=== PATIENT | female | born 1980 | race Caucasian/White ===

== ENCOUNTER → 2016-10-04 | Outpatient (CLI) | payer BC ==
[~2016-10-04] MED LIST: PRENTAB26 PO
== END | disposition home or self-care (01) ==
LOC: C.LABSPEC 16:12
PROVIDERS: ATTEND Obstetrics & Gynecology
DX: O24.414 Gestational diabetes mellitus in pregnancy, insulin controlled (principal); Z3A.00 Weeks of gestation of pregnancy not specified

== ENCOUNTER 2016-10-24 07:36 | Inpatient (IN) | payer BC ==
[~2016-10-24] VITALS: Ht 167.6 cm; Wt 96.2 kg
[2016-10-24] MEDS ORDERED: SODIUM CHLORIDE 0.9% 1000ML 1,000 ML IV SCH (08:37)
[2016-10-24] MEDS ORDERED: LACTATED RINGER'S 1000ML 1,000 ML IV PRN (08:37)
[2016-10-24] MEDS ORDERED: LACTATED RINGER'S 1000ML 500 ML IV PRN ×2 (08:40→18:53)
[2016-10-24] MEDS ORDERED: OXYTOCIN 30 UNITS/500ML NSS IV PRN ×2 (08:45→20:45)
[2016-10-24] MEDS ORDERED: DEXTROSE 50% 50 ML SYR IV PRN (08:45)
[2016-10-24 09:06] LABS: HEMATOCRIT 35.9 % (37-47); MEAN CELL VOLUME 91.6 fL (80-100); MEAN CORPUSCULAR HEMOGLOBIN 31.9 pg (25-34); MEAN CORPUSCULAR HGB CONC 34.8 g/dl (32-36); MEAN PLATELET VOLUME 11.8 fL (7.4-10.4); PLATELET COUNT 193 K/uL (130-400); RED BLOOD COUNT 3.92 M/uL (4.2-5.4); WHITE BLOOD COUNT 11.08 K/uL (4.8-10.8)
--- NOTE | 2016-10-24 09:19 | Medical Student: [facility] ---
Med Student History & Physical Date of Service Oct 24, 2016. Chief Complaint Here for induction History of Present Illness Source: patient, partner, clinic records, hospital records This is a 36 year old who presents at 39 weeks 5 days for induction of labor. This is a via in vitro fertilization which was complicated by gestational diabetes and group B strep positive status. She has no acute complaints at the moment. She reports frequent movement, no bleeding other than light bleeding following a cervical check at the office, no fluid leaks, and only occasional cramping but no true contractions. Labs: Blood type: O+, negative antibody screen HCT/HGB: 33.6% and 11.7 g/dl PAP: negative Varicella not tested Rubella: Immune VDRL/RPR: Nonreactive HBsAg: Negative HIV: Negative Chlamydia: Negative Gonorrhea: Negative CF screen: Negative Diabetes: Positive 2nd trimester screen: Negative GBS: Positive OB History G1: Chemical with spontaneous . G2: Current . INCIDENT RESPONSE COORDINATOR History Patient reports age of menarche to be 12. Her last menstrual period she thinks was in November. Prior to her periods had been regular at 30 day intervals, lasting about 5-7 seven days with painful cramping and heavy bleeding for the first few days. She denies any history of STDs. She had a previous abnormal pap smear in 2011 which showed ASCUS, but has had several normal paps since then, including her pap at her initial OB visit. Past Medical History No significant past medical history other than infertility. Past Surgical History [place] teeth removal 10 years ago. Family History No relevant family history Social History Smoking Status: Never Smoker Smokeless Tobacco Use: No Alcohol Use: socially (none during ) Drug Use: none Marital Status: Housing status: lives with significant other Occupational Status: employed Allergies Coded Allergies: No Known Allergies (Unverified , 10/24/16) Review of Systems Eyes: No worsening of vision Abdomen: No pain Musculoskeletal: + swelling (mild lower extremity swelling) Physical Exam General Appearance: WD/WN, no apparent distress Respiratory/Chest: lungs clear, normal breath sounds Cardiovascular: regular rate, rhythm, no murmur Abdomen / GI: non tender, soft, + pertinent finding (gravid) Genitourinary - Female: + pertinent finding (cervix 3 cm dilated, 50% effaced, -2 station) Extremities: no calf tenderness, no pedal edema Neurologic/Psych: alert, oriented x 3 Monitoring External Monitor: baseline 150 with moderate variability and accelerations present, without decelerations. Tocodynamometer: No significant contractions Laboratory Results Test 10/24/16 08:37 Assessment and Plan This is a 36 year old who presents at 39 weeks 5 days for induction of labor. She is not yet in labor as evidenced by her lack of contractions. positioning is vertex. heart monitoring shows a category I tracing. She has IV access and will be receiving pitocin beginning at 1 mu and increasing as needed. She will also be given penicillin for GBS prophylaxis. Team will continue to monitor and maternal vital signs and perform regular cervical checks for progression of labor.
[2016-10-24] MEDS ORDERED: PENICILLIN G POTASSIUM IV 6 MU in DEXTROSE 5% 250ML 250 ML IV ONE (09:30)
[2016-10-24] MEDS: LACTATED RINGER'S 1000ML 1,000 ML IV SCH (09:38)
[2016-10-24] MEDS: DEXTROSE 5% 1000ML 1,000 ML IV SCH ×4 (09:39→13:01)
[2016-10-24] MEDS: INSULIN REGULAR 250 UNITS in SODIUM CHLORIDE 0.9% 250ML 250 ML IV SCH ×9 (09:57→19:07)
[2016-10-24] MEDS ORDERED: GLUCOSE 40% GEL 15 GM TUBE PO PRN (10:00)
[2016-10-24] MEDS ORDERED: GLUCOSE 10 TABS/TUBE PO PRN (10:00)
[2016-10-24] MEDS ORDERED: GLUCAGON FOR INJ 1 MG VIAL SQ PRN (10:00)
[2016-10-24 12:30] VITALS: BMI 34.2
[2016-10-24] MEDS ORDERED: PRENTAB26 PO (12:31)
[2016-10-24 12:32] VITALS: Ht 167.6 cm; Wt 96.2 kg
[2016-10-24] MEDS: PENICILLIN G POTASSIUM IV 3 MU in DEXTROSE 5% 100ML 100 ML IV PRN ×2 (14:02→18:11)
[2016-10-24] MEDS ORDERED: BUPIVACAINE 0.25% 30 ML VIAL ONE (17:36)
[2016-10-24] MEDS ORDERED: EpHEDrine SULFATE INJ 50 MG/ML AMP ONE (17:36)
[2016-10-24] MEDS ORDERED: FENTANYL CITRATE INJ 50 MCG/1 ML 2 ML VIAL ONE (17:37)
[2016-10-24] MEDS ORDERED: FENTANYL 2MCG/ML ROPIV 1.25MG/ML 100ML BAG EPI ONE (17:38)
[2016-10-24] MEDS ORDERED: NALOXONE HCL INJ 1 MG in SODIUM CHLORIDE 0.9% 1000ML 1,000 ML IV PRN (18:53)
[2016-10-24] MEDS ORDERED: DiphenhydrAMINE HCL 50 MG/ML VIAL IV PRN (19:00)
[2016-10-24] MEDS ORDERED: FENTANYL 2MCG/ML ROPIV 1.25MG/ML 100ML BAG EPI PRN (19:00)
[2016-10-24] MEDS ORDERED: NALOXONE HCL INJ 0.4 MG/1 ML VIAL/CARP IV PRN (19:00)
[2016-10-24] MEDS ORDERED: EpHEDrine SULFATE INJ 50 MG/ML AMP IV PRN (19:00)
[2016-10-24] MEDS ORDERED: PROMETHAZINE HCL INJ 25 MG in SODIUM CHLORIDE 0.9% 50ML 50 ML IV PRN (19:00)
[2016-10-24] MEDS ORDERED: ONDANSETRON INJ 2 MG/ML 2 ML VIAL IV PRN (19:00)
[2016-10-24] MEDS ORDERED: NALBUPHINE HCL INJ 10 MG/ML AMP IV PRN (19:00)
[2016-10-24] MEDS ORDERED: METOCLOPRAMIDE HCL INJ 20 MG in SODIUM CHLORIDE 0.9% 50ML 50 ML IV PRN (19:00)
[2016-10-24] MEDS ORDERED: LANOLIN OINT EXT PRN ×2 (20:45)
[2016-10-24] MEDS ORDERED: ACETAMINOPHEN/CODEINE 300/30MG TAB PO PRN (20:45)
[2016-10-24] MEDS ORDERED: ACETAMINOPHEN 325 MG TAB PO PRN (20:45)
[2016-10-24] MEDS ORDERED: BENZOCAINE 20% AER SPR 82.5 GM CAN EXT PRN (20:45)
[2016-10-24] MEDS ORDERED: HYDROCORTISONE ACETATE 25 MG SUPP PR PRN (20:45)
[2016-10-24] MEDS ORDERED: SUPERCREAM 0.870 % 15GM JAR EXT PRN (20:45)
[2016-10-24] MEDS ORDERED: OXYCODONE/ACETAMINOPHEN 5-325 TAB PO PRN (20:45)
[2016-10-24] MEDS: IBUPROFEN 600 MG TAB PO PRN (22:51)
[2016-10-24] MEDS: ACETAMINOPHEN/CODEINE 300/30MG TAB PO PRN (22:51)
[2016-10-25] VITALS (7 sets, daily range): BP systolic 97–117; BP diastolic 49–69; PULSE 67–91; TEMP 36.3–36.8; O2SAT 97–98
[2016-10-25] MEDS: LACTATED RINGER'S 1000ML 1,000 ML IV SCH (00:20)
[2016-10-25] MEDS: IBUPROFEN 600 MG TAB PO PRN ×5 (02:51→22:06)
[2016-10-25 06:33] LABS: HEMATOCRIT 28.1 % (37-47)
--- NOTE | 2016-10-25 07:04 | DELIVERY SUMMARY ---
DATE OF OPERATION: 10/24/2016 OPERATIVE VAGINAL DELIVERY NOTE Negrita was induced as an insulin-dependent diabetic at 39+ weeks gestation. Group B strep positive. Penicillin started. Pitocin was used to induce and then ARM. The patient requested epidural and then that evening she progressed to fully dilate and push. She pushed well initially, but had repeated episodes of bradycardia. The baby was at spines +2 to +3 cm and I recommended vacuum extraction due to the nonreassuring heart rate, the patient agreed. PROCEDURE: Coleman catheter was used to drain her bladder and then was removed. Under sterile technique vacuum was then applied. Baby was in vertex position. RADHA spines +2 to +3 cm. Vacuum over 2 contractions with 1 pop off and then the second contraction we delivered the head. Vacuum was then detached. Mouth and the nares were suctioned. There was a body cord found which baby slid passed and then baby was delivered with no excessive force. Gentle measures were used. Live vigorous female infant. Cord was clamped and gases were obtained. Cord blood obtained. Cord blood collection was performed. Placenta was removed with gentle traction. It should be noted, we made a small right medial lateral episiotomy as well to facilitate delivery, this was repaired with 3-0 Vicryl in the usual fashion. Sponge and instruments counts were correct. Estimated blood loss 300 mL. Rectal exam negative for defects or sutures. I attest to the content of the Intraoperative Record and any orders documented therein. Any exceptio ns are noted below.
--- NOTE | 2016-10-25 07:07 | Progress Note ---
Subjective Oct 25, 2016. Subjective conversation w/ patient, physical exam Ambulation: ambulating normally Passing Gas: Yes Diet Tolerance: Regular Diet Lochia: Small Feeding Type: Breast Feeding Review of Systems Constitutional: No chills, No fever, No sweats Respiratory: No cough, No shortness of breath Cardiac: No chest pain, No claudication Objective Vital Signs Date Time Temp Pulse Resp B/P Pulse Ox O2 Delivery O2 Flow Rate FiO2 10/25/16 04:00 36.8 71 16 108/63 97 Room Air 10/25/16 00:30 97 Room Air 10/25/16 00:30 36.3 71 18 105/61 10/25/16 00:30 36.3 71 18 105/61 97 Room Air Physical Exam General Appearance: WELL-APPEARING, NO APPARENT DISTRESS Respiratory/Chest: lungs clear, no respiratory distress Cardiovascular: regular rate, rhythm, no murmur Fundus: Firm, Non-Tender, Relation to Umbilicus (1 cm below) Incision Description: Clean, Dry & Intact Extremities: non-tender, no calf tenderness Laboratory Results Last 24 Hours Test 10/24/16 08:39 10/24/16 08:57 10/24/16 09:54 10/24/16 10:59 Bedside Glucose 81 mg/dl 79 mg/dl 115 mg/dl White Blood Count 11.08 K/uL Red Blood Count 3.92 M/uL Hemoglobin 12.5 g/dL Hematocrit 35.9 % Mean Corpuscular Volume 91.6 fL Mean Corpuscular Hemoglobin 31.9 pg Mean Corpuscular Hemoglobin Concent 34.8 g/dl RDW Standard Deviation 44.3 fL RDW Coefficient of Variation 13.3 % Platelet Count 193 K/uL Mean Platelet Volume 11.8 fL Test 10/24/16 12:02 10/24/16 12:54 10/24/16 14:04 10/24/16 14:59 Bedside Glucose 77 mg/dl 72 mg/dl 79 mg/dl 98 mg/dl Test 10/24/16 16:06 10/24/16 17:02 10/24/16 17:56 10/24/16 19:04 Bedside Glucose 80 mg/dl 84 mg/dl 90 mg/dl 99 mg/dl Test 10/24/16 20:14 10/25/16 00:06 10/25/16 00:54 10/25/16 01:02 Bedside Glucose 100 mg/dl 228 mg/dl 235 mg/dl Random Glucose 215 mg/dl Test 10/25/16 04:56 10/25/16 06:07 Bedside Glucose 133 mg/dl Hemoglobin 9.8 g/dL Hematocrit 28.1 % Assessment and Plan Post- Day#: 1 Continue Routine Care: s/p Day 1 - vitals reviewed and wnl - blood: O+, GBS+, Rubella immune - encourage ambulation, encourage , and monitor lochia - patient doing well clinically - CONTINUE ROUTINE POST CARE Resident Physician Supervision Note: I interviewed and examined the patient. Discussed with Dr. Earl and agree with findings and plan as documented in the note. Any exceptions or clarifications are listed here: [None] Documented By: Андрей Rudolph
[2016-10-25] MEDS: DOCUSATE SODIUM 100 MG CAP PO SCH ×2 (09:00→19:46)
[2016-10-25] MEDS: PRENATAL VITAMIN TAB PO SCH (09:01)
--- NOTE | 2016-10-25 09:17 | Anesthesia Procedure Note ---
Anesthesia Epidural Removal Nt Date & Time Oct 25, 2016 at 09:17 Vital Signs Pain Intensity: 4.0 Vital Signs Past 12 Hours Date Time Temp Pulse Resp B/P Pulse Ox O2 Delivery O2 Flow Rate FiO2 10/25/16 04:00 36.8 71 16 108/63 97 Room Air 10/25/16 00:30 97 Room Air 10/25/16 00:30 36.3 71 18 105/61 10/25/16 00:30 36.3 71 18 105/61 97 Room Air Notes Mental Status: alert / awake / arousable, participated in evaluation Nausea / Vomiting: adequately controlled Pain: adequately controlled Airway Patency, RR, SpO2: stable & adequate BP & HR: stable & adequate Hydration State: stable & adequate Neuraxial Anesthesia: was administered Anesthetic Complications: no major complications apparent, pt satisfied with anesthetic care Epidural: removed without complications, with tip intact
[2016-10-25] MEDS ORDERED: BISACODYL 5 MG TABEC PO SCH (20:00)
--- NOTE | 2016-10-25 20:18 | Discharge Instructions ---
Discharge Instructions Date of Service Oct 25, 2016. Admission Reason for Admission: Induction Discharge Discharge Diagnosis / Problem: Spontaneous Vaginal Delivery Discharge Goals Goal(s): Routine recovery after delivery Medications Continue Dispensed Medications: supercream, dermaplast, tucks, lansinoh Activity Recommendations Activity Limitations: per Instructions/Follow-up section . Instructions / Follow-Up Instructions / Follow-Up ACTIVITY RECOMMENDATIONS: * Gradual return to full activity over the next 2-3 weeks. * No lifting - nothing heavier than baby over the next 2-3 weeks. * Do not engage in vigorous exercise, sexual activity or sports until cleared by your physician. * Do not drive or operate any motorized equipment until cleared by your physician. * You may shower/bathe daily. MEDICATIONS: For discomfort or pain, you may use Acetaminophen (Tylenol), Ibuprofen (Advil), or Naproxen (Aleve) following the package directions. For constipation you may use Colace following the package directions. BREAST CARE: If you are not breast feeding: * Wear a supportive bra 24 hours a day for one to two weeks. * Avoid stimulating your breasts and nipples as much as possible during the first few weeks after delivery. * When taking a shower, have the warm water hit your back, not breasts. * When your breasts feel full, apply ice packs. Usually three to four times a day helps ease the discomfort. * Take a mild pain medication (Tylenol / Motrin) when you are uncomfortable. If breast feeding: * Use breast milk to lubricate nipples. Lansinoh cream may be used for sore nipples. You do not need to remove cream prior to breast feeding. If using a different brand of cream, check the label for directions regarding removal of cream prior to nursing. * Wear a supportive bra. * If having problems with breasts or breast feeding, call a [facility] ascp consultant or your health care provider. EPISIOTOMY CARE: After delivery, if you have an episiotomy (stitches), the following steps will ease discomfort and aid healing. * For the first 24 hours after delivery, place ice packs next to your episiotomy to help reduce swelling. * After the first 24 hour-period, sitz baths, either portable or in the tub, are suggested. A shower with a shower arm sprayed over the episiotomy may be comforting. * Ashley care should be done after each voiding and bowel movement. Squirt warm water from a plastic bottle over the perineum (region of the body between the anus and urinary opening) and pat dry. * Use Dermoplast to ease discomfort. Shake container. [place] directly over the episiotomy. Place a Tucks on a clean sanitary pad next to your episiotomy. SPECIAL CARE INSTRUCTIONS: When you are discharged from the hospital, it is important for you to follow the instructions listed below: * During the first week at home, you should be able to care for yourself and your baby. In addition, the usual light household activities are encouraged. * Limit your activities to the way you feel. Do not try to clean the house or move furniture. Be sensible. * If you actively engage in sports and have done so up until the time of your delivery, you may resume these activities as soon as you feel able. This may take up to one month or even longer. Use good judgment. * Continue to take your vitamins for at least six weeks after the of your baby. * Your diet need not be limited unless you were on a special diet before your delivery. Breast-feeding mothers need around 2500 calories per day and at least 64-80 ounces of fluid per day (8 to 10 glasses). * You should eat foods from the four major food groups. Crash diets or fad diets are to be avoided. Eating lean meats, fresh fruits and vegetables, low-fat dairy products, high fiber foods and a regular exercise program, will help you get back to your pre- weight without putting your health at risk. * Constipation is sometimes a problem after delivery. Take a mild laxative as needed. If breast feeding, Milk of Magnesia is acceptable to use. You may use a suppository or Fleets enema if no episiotomy. * A daily shower or tub bath is suggested. Be sure to thoroughly and gently dry the perineum. * A bloody vaginal discharge will usually continue until around four weeks post . A small amount of bleeding may continue for as long as six weeks. Vaginal discharge changes from the bright red bleeding after delivery to pink then brownish and finally yellowish-pink before becoming white and disappearing. * Bleeding may increase with activity. Your first period may come in 4-8 weeks. If you are breast feeding, your period may be delayed even longer. * [place] (sex) can begin whenever both you and your partner feel comfortable and do not have any form of genital infection. It is recommended that you wait at least six weeks for internal and external healing to occur. If you have questions, please talk to your health care practitioner. A condom should be used to prevent infection and . * Foreplay, gentle intercourse and lubrication is very important the first several times to prevent pain. A water-based lubricant such as K-Y jelly or Astroglide may be used. * If you have RH negative blood and your baby is RH positive, you will receive RHOGAM by injection prior to discharge. The nurse will give you a card to keep with you that has the date and place that you received RHOGAM after delivery. * During your care, you had a Rubella screen done to check for the presence of rubella antibodies in your blood. If your test was negative, you will receive a Rubella vaccine prior to discharge. This vaccine may cause a fever, soreness at the injection site and flu-like symptoms. If these symptoms persist, notify your health care practitioner. is not advised for one month after a Rubella vaccine. * Verbalizes understanding of car seat law as reviewed with patient nursing. * Car Seat hand-out given and reviewed with patient by nursing. * Shaken baby information reviewed with patient by nursing. Call you doctor if: * Heavy bleeding (saturating several pads an hour) or passing clots the size of your fist. * A fever >101 degrees F (38.3 degrees C) on two occasions four hours apart and /or chills. * Unusual pain in the pelvic or vaginal areas. * "Baby Blues" lasting longer than two weeks. If you have any questions or concerns, call your health care practitioner at . FOLLOW UP VISIT: * Please call the office at to schedule a 6 week examination. It is important you keep this appointment. It is important for you to make arrangements for either yearly or twice yearly check-ups thereafter. Current Hospital Diet Patient's current hospital diet: Regular OB Diet Discharge Diet Recommended Diet: Regular Diet Pending Studies Studies pending at discharge: no Medical Emergencies . Who to Call and When: Medical Emergencies: If at any time you feel your situation is an emergency, please call 911 immediately. . Non-Emergent Contact Non-Emergency issues call your: Primary Care Provider, Machine Milker . . "Provider Documentation" section prepared by Newton Earl. VTE Core Measure Inpt VTE Proph given/why not?: Treatment not indicated
--- NOTE | 2016-10-26 06:40 | Progress Note ---
Subjective Oct 26, 2016. Subjective conversation w/ patient, physical exam Ambulation: ambulating normally Voiding: no voiding problems Passing Gas: Yes Diet Tolerance: Regular Diet Lochia: Small Feeding Type: Breast Feeding (supplementing with formula) Review of Systems Constitutional: No chills, No fever Respiratory: No cough, No shortness of breath Cardiac: No chest pain, No claudication Objective Vital Signs Date Time Temp Pulse Resp B/P Pulse Ox O2 Delivery O2 Flow Rate FiO2 10/25/16 23:50 Room Air 10/25/16 23:50 36.8 91 18 104/62 Room Air 10/25/16 19:30 36.5 81 20 107/68 Room Air 10/25/16 16:45 Room Air 10/25/16 16:45 36.5 75 16 117/69 Room Air 10/25/16 10:54 36.8 78 16 111/66 98 Room Air 10/25/16 07:40 36.6 67 16 97/49 Room Air 10/25/16 07:40 Room Air Physical Exam General Appearance: WELL-APPEARING, NO APPARENT DISTRESS Respiratory/Chest: lungs clear, no accessory muscle use Cardiovascular: regular rate, rhythm, no murmur Fundus: Firm, Non-Tender, Relation to Umbilicus (2 cm below) Extremities: non-tender, no calf tenderness Laboratory Results Last 24 Hours Test 10/25/16 07:35 Bedside Glucose 84 mg/dl Assessment and Plan Post- Day#: 2 Continue Routine Care: s/p Day 2 - vitals reviewed and wnl - Hgb 9.8 yesterday - blood: O+, GBS+, Rubella immune - encourage ambulation, encourage , and monitor lochia - patient doing well clinically - Patient counselled on discharge instructions - PATIENT TO BE DISCHARGED TODAY Resident Physician Supervision Note: I interviewed and examined the patient. Discussed with Dr. Earl and agree with findings and plan as documented in the note. Any exceptions or clarifications are listed here: [None] Documented By: Carina Padgett
[2016-10-26] MEDS ORDERED: BISACODYL 10 MG SUPP PR PRN (07:00)
[2016-10-26 07:15] VITALS: BP 100/64; PULSE 76; TEMP 36.9; O2SAT 100
[2016-10-26] MEDS: DOCUSATE SODIUM 100 MG CAP PO SCH (08:11)
[2016-10-26] MEDS: PRENATAL VITAMIN TAB PO SCH (08:11)
[2016-10-26] MEDS: IBUPROFEN 600 MG TAB PO PRN (15:09)
[2016-10-26 15:30] VITALS: BP 111/69; PULSE 88; TEMP 36.8
[2016-10-26] MEDS: ACETAMINOPHEN/CODEINE 300/30MG TAB PO PRN (16:03)
[2016-10-26 18:35] VITALS: BP_DIAS 69; PULSE 88; TEMP 36.8
== END 2016-10-26 18:55 | disposition home or self-care (01) | DRG 775 ==
LOC: C.LD 07:36 → C.OBG 10-25 00:21
PROVIDERS: ADMIT Obstetrics & Gynecology; ATTEND Obstetrics & Gynecology
PROC: 0W8NXZZ Division of Female Perineum, External Approach (ICD-10-PCS; principal; 2016-10-24)
PROC: 10E0XZZ Delivery of Products of Conception, External Approach (ICD-10-PCS; principal; 2016-10-24)
PROC: 10907ZC Drainage of Amniotic Fluid, Therapeutic from Products of Conception, Via Natural or Artificial Opening (ICD-10-PCS; principal; 2016-10-24)
PROC: 3E033VJ Introduction of Other Hormone into Peripheral Vein, Percutaneous Approach (ICD-10-PCS; principal; 2016-10-24)
DX: O24.424 Gestational diabetes mellitus in childbirth, insulin controlled (principal); Z37.0 Single live birth; O99.824 Streptococcus B carrier state complicating childbirth; O76 Abnormality in fetal heart rate and rhythm complicating labor and delivery; O69.2XX0 Labor and delivery complicated by other cord entanglement, with compression, not applicable or unspecified; Z79.4 Long term (current) use of insulin; Z3A.39 39 weeks gestation of pregnancy

== ENCOUNTER → 2016-12-12 | Outpatient (CLI) | payer BC | END | disposition home or self-care (01) | LOC: C.LAB1850 08:35 | PROVIDERS: ATTEND Obstetrics & Gynecology | DX: Z39.2 Encounter for routine postpartum follow-up (principal); O24.414 Gestational diabetes mellitus in pregnancy, insulin controlled; Z3A.00 Weeks of gestation of pregnancy not specified ==

== ENCOUNTER → 2017-10-28 | Outpatient (CLI) | payer BC | END | disposition home or self-care (01) | LOC: C.LABSPEC 13:35 | PROVIDERS: ATTEND Obstetrics & Gynecology | DX: O09.291 Supervision of pregnancy with other poor reproductive or obstetric history, first trimester (principal); Z3A.00 Weeks of gestation of pregnancy not specified ==

== ENCOUNTER → 2017-11-04 | Outpatient (CLI) | payer BC ==
[2017-11-04 12:06] LABS: BASO % 0.2 %; BASO ABS # 0.02 K/uL (0-0.2); EOS % 0.2 %; EOS ABS # 0.02 K/uL (0-0.5); HEMATOCRIT 37.7 % (37-47); HEMOGLOBIN 13.3 g/dL (12.0-16.0); IG# 0.02 K/uL (0.00-0.02); LYMPH % 16.4 %; LYMPH ABS # 1.66 K/uL (1.2-3.4); MEAN CELL VOLUME 87.9 fL (80-100); MEAN CORPUSCULAR HGB CONC 35.3 g/dl (32-36); MEAN PLATELET VOLUME 11.9 fL (7.4-10.4); MONO ABS # 0.71 K/uL (0.11-0.59); NEUT ABS # 7.71 K/uL (1.4-6.5); PLATELET COUNT 283 K/uL (130-400); RED CELL DISTRIBUTION WIDTH SD 41.7 fL (36.4-46.3); WHITE BLOOD COUNT 10.14 K/uL (4.8-10.8)
== END | disposition home or self-care (01) ==
LOC: C.LAB1850 10:16
PROVIDERS: ATTEND Obstetrics & Gynecology
DX: O09.521 Supervision of elderly multigravida, first trimester (principal); Z3A.00 Weeks of gestation of pregnancy not specified

== ENCOUNTER 2019-11-15 13:08 | Inpatient (IN) ==
[2019-11-16] MEDS ORDERED: OXYTOCIN 30 UNITS/500 ML BAG IV PRN ×3 (07:36→13:14)
[2019-11-16 07:58] LABS: Hematocrit (blood only) 36.8 % (37-47); Hemoglobin 12.6 g/dL (12.0-16.0); Mean Corpuscular Hemoglobin 31.6 pg (25-34); Mean Corpuscular Hgb Conc 34.2 g/dL (32-36); Mean Corpuscular Volume 92.2 fL (80-100); Platelet Count 178 K/uL (130-400); RDW Coefficient of Variation 13.6 % (11.5-14.5); Red Blood Count 3.99 M/uL (4.2-5.4); White Blood Count 9.55 K/uL (4.8-10.8)
[2019-11-16] MEDS: LACTATED RINGER'S 1,000 ML IV PRN ×2 (08:51→11:06)
--- NOTE | 2019-11-16 09:53 | History & Physical Report ---
Date of Service November 16, 2019 Assessment & Plan (1) Insulin controlled gestational diabetes mellitus (GDM) during : iup at 40+ weeks with GDM on insulin begin pitocin induction epidural prior to AROM as her last labor was precipitous after AROM anticipate vaginal History of Present Illness Primary Care Provider: Herman Horvath MD Patient is a 39 yo white female EDC 11/12/19 who presents at 40+ weeks for IOL because of GDM on insulin. she has had intermittent contractions for the past week with some brown discharge last night. blood sugars have been good. GBS negative blood type O positive. Allergies Allergy/AdvReac Type Severity Reaction Status Date / Time No Known Allergies Allergy Verified 11/16/19 07:45 Home Medications Home Medications Medication Instructions Recorded Confirmed Type acetone (urine) test #50 ea 05/16/19 11/15/19 Rx blood sugar diagnostic #120 ea 05/16/19 11/15/19 Rx insulin syringe-needle U-100 0.5 #200 ea 10/08/19 11/15/19 Rx mL 29 gauge x 1/2" PNV cmb#95-ferrous fumarate-FA 1 tab PO DAILY 11/16/19 11/16/19 History [] docusate sodium [Colace] 100 mg PO DAILY 11/16/19 11/16/19 History insulin NPH and regular human 25 unit SUBCUT HS 11/16/19 11/16/19 History [Novolin 70/30 U-100 Insulin] insulin aspart U-100 [Novolog 5 - 10 sliding scale dose SUBCUT 11/16/19 11/16/19 History U-100 Insulin aspart] USEASDIRECTD Patient History Medical History Gestational diabetes on insulin currently. Infertility IVF with first only Surgical History History of tooth extraction S/P wisdom tooth extraction Family History Grandfather Stroke Social History Preferred Language: Japanese Communication Ability: Effective Naval Inspector Required: No Beliefs That Will Affect Care: None marital status: marital status details: Santi Johnson [phone] Current Living Situation: Spouse and Family Current Living Situation Comment: no pets current occupational status: employed current occupation: tax examiner Other Information That Helps Us Care for You: No Feels Safe at Home: Yes Safety Concerns: Feels Safe At This Time Smoking Status: Never smoker Second Hand Exposure: No ; Hx Alcohol Use: No Hx Substance Use: No Physical Exam Constitutional: WD/WN, vitals as above Respiratory: normal respiratory effort, lungs clear to auscultation Cardiovascular: RRR, no murmur, no edema Gastrointestinal (Abdomen): normal bowel sounds, soft, nontender, no hepatosplenomegaly Psychiatric: A+Ox3, euthymic affect Genitourinary: OB Exam Abdomen: + vertex and + estimated weight (8-9 pounds) Manual OB Exam: + cervical dilation 3 cm, + cervical effacement 70% and + station -1 OB Exam Monitor Tracing: + external FHT monitor used, + e xternal uterine monitor used and + category I Results & Data Vital Signs (Past 12 Hours) Vital Signs Temp Pulse Resp BP 11/16/19 08:50 70 104/62 11/16/19 07:44 98.1 F 76 16 107/62 11/16/19 07:41 98.1 F 76 16 [id number] Coding Level of Care Code None Diagnoses Insulin controlled gestational diabetes mellitus (GDM) during O24.414
[2019-11-16] MEDS ORDERED: ePHEDrine sulfate 50 MG/ML AMP ONE (10:20)
[2019-11-16] MEDS ORDERED: fentaNYL citrate 100 MCG/2 ML VIAL ONE (10:21)
[2019-11-16] MEDS ORDERED: fentaNYL 2MCG/ML ROPIV 1.25MG/ML 100 ML BAG EPI ONE (10:21)
[2019-11-16] MEDS ORDERED: BUPIVACAINE 0.25% 30 ML VIAL ONE (10:21)
--- NOTE | 2019-11-16 11:27 | Anesthesiology Consultation ---
Date of Service November 16, 2019 Assessment & Plan Chart Review Chart Review: Acceptable Risk for Labor Epidural Consults Requested none Proposed Anesthesia Risk / Benefits Reviewed With: PT / POA / Parent / Guardian, Accepts Plan and Informed Consent Obtained History Height/Weight Height: 5 ft 6 in Weight: 91.626 kg Allergies Allergy/AdvReac Type Severity Reaction Status Date / Time No Known Allergies Allergy Verified 11/16/19 07:45 Medications Home Medications Medication Instructions Recorded Confirmed Last Taken acetone (urine) test #50 ea 05/16/19 11/15/19 Unknown blood sugar diagnostic #120 ea 05/16/19 11/15/19 Unknown insulin syringe-needle U-100 0.5 #200 ea 10/08/19 11/15/19 Unknown mL 29 gauge x 1/2" PNV cmb#95-ferrous fumarate-FA 1 tab PO DAILY 11/16/19 11/16/19 11/15/19 22:00 [] docusate sodium [Colace] 100 mg PO DAILY 11/16/19 11/16/19 11/14/19 insulin NPH and regular human 25 unit SUBCUT HS 11/16/19 11/16/19 11/15/19 22:00 [Novolin 70/30 U-100 Insulin] insulin aspart U-100 [Novolog 5 - 10 sliding scale dose SUBCUT 11/16/19 11/16/19 11/16/19 07:00 U-100 Insulin aspart] USEASDIRECTD Active Medications Generic Name Dose Route Start Last Admin Trade Name Freq PRN Reason Stop Dose Admin Lactated Ringer's 1,000 mls @ 125 mls/hr 11/16/19 07:36 11/16/19 11:06 Lr IV 11/18/19 07:35 125 mls/hr .Q8H PRN Administration L&D Protocol Protocol Oxytocin 30 units in 500 mls @ 5 mls/hr 11/16/19 07:38 11/16/19 11:20 Pitocin IV 11/18/19 07:37 0.42 units/hr .Q24H PRN 7 mls/hr Labor Induction/Augmentation Titration Protocol 0.3 UNITS/HR Past Medical History Medical History Gestational diabetes on insulin currently. Infertility IVF with first only Past Family History Family History Grandfather Stroke Past Surgical History Surgical History History of tooth extraction S/P wisdom tooth extraction Social History Smoking Status: Never smoker Hx Alcohol Use: No Hx Substance Use: No substance use type: does not use Physical Exam Vital Signs Last Vital Signs Temp 36.7 C 11/16/19 07:44 Pulse 68 11/16/19 11:24 Resp 16 11/16/19 07:44 BP 98/65 L 11/16/19 11:21 Pulse Ox 96 11/16/19 11:24 Testing Laboratory Results 11/16/19 07:47 11/16/19 08:21 POC Glucose 107 H
--- NOTE | 2019-11-16 12:26 | Obstetrical Progress Note ---
Date of Service November 16, 2019 Assessment & Plan (1) Insulin controlled gestational diabetes mellitus (GDM) during : continue current care plan Subjective comfortable with epidural analgesia pitocin at 7 miu Review of Systems Review of Systems: All systems reviewed & are unremarkable except as noted in HPI & below Physical Exam Psychiatric: A+Ox3, euthymic affect Genitourinary: Manual OB Exam: + cervical dilation 7 cm, + cervical effacement 100%, + station -2 and + amniotic fluid clear OB Exam Monitor Tracing: + external FHT monitor used, + external uterine monitor used, + category II and + normal FHT variability variables with contractions with good recovery Results & Data Vital Signs (Past 12 Hours) Vital Signs Temp Pulse Resp BP Pulse Ox 11/16/19 12:19 75 95 11/16/19 12:14 66 94 11/16/19 12:12 65 98/60 L 11/16/19 12:11 97.7 F 18 11/16/19 12:09 69 96 11/16/19 12:08 68 111/66 11/16/19 12:04 65 94 11/16/19 12:02 69 103/58 L 11/16/19 12:00 16 11/16/19 11:59 74 95 11/16/19 11:58 68 111/57 L 11/16/19 11:57 67 94 11/16/19 11:54 70 95 11/16/19 11:53 72 112/57 L 11/16/19 11:50 70 94 11/16/19 11:49 67 95 11/16/19 11:47 69 109/55 L 11/16/19 11:45 16 11/16/19 11:44 76 95 11/16/19 11:42 73 107/55 L 11/16/19 11:39 69 96 11/16/19 11:36 69 100/60 11/16/19 11:34 72 95 11/16/19 11:32 71 102/63 94 11/16/19 11:30 20 11/16/19 11:29 69 96 11/16/19 11:28 71 103/56 L 11/16/19 11:27 72 94 11/16/19 11:24 68 96 11/16/19 11:21 69 98/65 L 11/16/19 11:19 68 101/59 L 96 11/16/19 11:17 76 98/60 L 11/16/19 11:15 68 18 101/61 11/16/19 11:14 76 96 11/16/19 11:13 68 99/60 L 11/16/19 11:11 70 102/60 11/16/19 11:10 16 11/16/19 11:09 66 103/59 L 97 11/16/19 11:04 65 97 11/16/19 10:59 70 97 11/16/19 10:54 67 97 11/16/19 10:52 98.1 F 11/16/19 10:50 65 106/69 11/16/19 10:49 66 98 11/16/19 10:44 66 97 11/16/19 10:39 66 97 11/16/19 10:34 70 97 11/16/19 10:29 72 97 11/16/19 10:24 71 97 11/16/19 09:51 64 97/63 L 11/16/19 08:50 70 104/62 11/16/19 07:44 98.1 F 76 16 107/62 11/16/19 07:41 98.1 F 76 16 107/62 PG Care Time/CCT Total # of Minutes Spent Total Time Spent with Patient: Total time spent is greater than 50% in coordination of care (as documented) at patient's floor/unit and/or counseling patient: Coding Level of Care Code None Diagnoses Insulin controlled gestational diabetes mellitus (GDM) during O24.414
[2019-11-16] MEDS ORDERED: BENZOCAINE 20% AER SPR 82.5 GM CAN EXT PRN (13:14)
[2019-11-16] MEDS ORDERED: HYDROCORTISONE ACETATE 25 MG SUPP PR PRN (13:14)
[2019-11-16] MEDS ORDERED: SUPERCREAM 0.870% 15 GM JAR EXT PRN (13:14)
[2019-11-16] MEDS ORDERED: DIPHTHERIA/TETANUS/PERTUSSIS 0.5 ML SYR/VIAL IM ONE (13:14)
[2019-11-16] MEDS ORDERED: bisacodyL 10 MG SUPP PR PRN (13:14)
[2019-11-16] MEDS ORDERED: OXYCODONE/ACETAMINOPHEN 5mg/325mg TAB PO PRN (13:14)
[2019-11-16] MEDS ORDERED: ACETAMINOPHEN 325 MG TAB PO PRN (13:14)
--- NOTE | 2019-11-16 13:44 | Anesthesia Procedure Note ---
Date of Service November 16, 2019 Anesthesia Post Epidural Note Vital Signs Vital Signs: Temp Pulse Resp BP Pulse Ox 36.5 C 69 16 104/60 96 11/16/19 12:11 11/16/19 13:38 11/16/19 12:45 11/16/19 13:38 11/16/19 12:54 Notes Mental Status: alert / awake / arousable Nausea / Vomiting: adequately controlled Pain: adequately controlled Airway Patency, RR, SpO2: stable & adequate BP & HR: stable & adequate Hydration State: stable & adequate Neuraxial Anesthesia: was administered and sensory block is resolving Anesthetic Complications: no major complications apparent and Pt Satisfied with anesthetic care Epidural: Removed without complications and With tip intact
--- NOTE | 2019-11-16 16:00 | Delivery Summary ---
DATE OF OPERATION: 11/16/2019 The patient is a 39-year-old white female 3, para 2-0-0-2, who presents at 40+ weeks for induction of labor because of GDM on insulin. Pitocin was begun on her arrival in labor and delivery. She received effective epidural analgesia; at that point her cervix was 7 cm dilated. Membranes were ruptured for clear fluid. She rapidly went to full dilation at that point and pushed effectively through 2 contractions for delivery of a viable male . There was a loose body cord present which was reduced after delivery. The rest of the infant delivered easily and was put on the mother's abdomen for attention and drying. There was spontaneous crying and infant was moving all 4 limbs. The cord was clamped and cut after 1 minute of life. The placenta was expressed intact with a 3-vessel cord. A first-degree perineal laceration was repaired with 3-0 chromic in the usual fashion. bleeding was controlled with dilute Pitocin. Mother and were doing well after delivery. I attest to the content of the Intraoperative Record and any orders documented therein. Any exception s are noted below.
[2019-11-16] MEDS: IBUPROFEN 600 MG TAB PO PRN ×2 (16:51→23:33)
[2019-11-16] MEDS: DOCUSATE SODIUM 100 MG CAP PO SCH (20:37)
[2019-11-17 06:40] LABS: Hemoglobin 12.3 g/dL (12.0-16.0); Mean Corpuscular Hemoglobin 32.5 pg (25-34); Mean Corpuscular Hgb Conc 35.1 g/dL (32-36); Mean Corpuscular Volume 92.3 fL (80-100); Mean Platelet Volume 12.3 fL (7.4-10.4); Platelet Count 169 K/uL (130-400); RDW Coefficient of Variation 13.9 % (11.5-14.5); RDW Standard Deviation 46.9 fL (36.4-46.3); Red Blood Count 3.79 M/uL (4.2-5.4); White Blood Count 10.91 K/uL (4.8-10.8)
--- NOTE | 2019-11-17 07:15 | Obstetrical Progress Note ---
Date of Service November 17, 2019 Assessment & Plan (1) Encounter for care and examination after delivery: satisfactory course wishes to go home today continue current care plan discharge to home when baby discharged Day #:: 1 Subjective Ambulation: ambulating normally Voiding: no voiding problems Passing Gas:: Yes Diet Tolerance:: regular diet Lochia:: Moderate Feeding Type:: breast feeding some cramping with nursing but tolerable Review of Systems All systems reviewed & are unremarkable except as noted in HPI & below Physical Exam Constitutional WD/WN, vitals as above Psychiatric A+Ox3, euthymic affect Genitourinary OB Exam Abdomen: + fundal height Fundus: + firm and + relation to umbilicus (1 below U) Results & Data Vital Signs (Past 12 Hours) Vital Signs Temp Pulse Resp BP 11/17/19 03:25 98.2 F 80 18 102/67 11/16/19 23:15 98.4 F 65 16 96/59 L 11/16/19 19:40 98.2 F 67 18 103/66
[2019-11-17] MEDS ORDERED: PRENATAL VITAMIN 1 TAB PO SCH (08:00)
[2019-11-17] MEDS: IBUPROFEN 600 MG TAB PO PRN (08:37)
[2019-11-17] MEDS: DOCUSATE SODIUM 100 MG CAP PO SCH (08:37)
[2019-11-17] MEDS ORDERED: bisacodyL 5 MG TABEC PO SCH (20:00)
== END 2019-11-17 19:49 | disposition home or self-care (01) | DRG 807 ==
LOC: 4S1 11-16 07:30 → 4S2 11-16 16:57